=== PATIENT | male | born 1965 | race African-American/Black ===

== ENCOUNTER 2016-03-15 12:59 | Emergency (ER) | payer OTHER ==
[~2016-03-15] VITALS: Ht 170.2 cm; Wt 94.3 kg
[~2016-03-15 12:59] MED LIST: DILAUDID2 MG PO; FLEXERIL10 MG PO; KETOROLAC TROME10 M1 PO; LIORESAL 10MG T10 MG PO; MOTRIN 600 MG600 MG PO; OXYCODONE5 M1 PO; PERCOCET 325 MG1 TA2 PO; TRAMADOL50 MG PO; TRIAMCINOL0.1 %/453 TOP; ULTRAM(MONOGRAP50 MG PO
[2016-03-15 13:17] VITALS: BP 187/102
--- NOTE | 2016-03-15 13:30 | ED GENERAL ADULT ---
History of Present Illness General Chief Complaint: General Adult Stated Complaint: NECK PAIN/BACK PAIN WITH WITHDRAWLS FROM PAIN MEDS Source: patient, old records Exam Limitations: no limitations Vital Signs & Intake/Output Vital Signs & Intake/Output Vital Signs Date Time Temp Pulse Resp B/P Pulse O2 O2 Flow FiO2 Ox Delivery Rate 03/15 1317 98.2 74 16 187/102 98 Room Air Allergies Coded Allergies: NO KNOWN ALLERGIES (01/06/16) Reconcile Medications Ketorolac Tromethamine 10 MG TABLET 1 TAB PO TID PRN pain Oxycodone HCl 5 MG CAPSULE 1 CAP PO BID PRN PAIN Triage Note: REQUEST REFILL OF PAIN MEDS, OXYCONTIN AND OXYCODONE Triage Nurses Notes Reviewed? yes Onset: Abrupt Duration: week(s):, constant Timing: recent history Injury Environment: home Severity: moderate Severity Numbers: 7 No Modifying Factors: none Associated Symptoms: denies HPI: 50-year-old male with history of chronic neck and back pain presents emergency room for evaluation requesting refill of his pain medication. Patient is well- known to this ER has been seen numerous times in the past for similar symptoms and no recent trauma or fall he denies any arm or leg pain no numbness or tingling no chest pain no shortness of breath. There are no modifying factors or associated symptoms (REYNALDO FONSECA) Past History Travel History Traveled to [place] past 21 day No Medical History Any Pertinent Medical History? 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 No (REYNALDO FONSECA) Review of Systems Review of Systems Constitutional: Reports: see HPI. All Other Systems: Reviewed and Negative Comments Review of systems: See HPI, All other systems negative. Constitutional, no chills no fever, no malaise HEENT: no sore throat no congestion Cardiovascular: No chest pain , no palpitation , Skin, no rashes, no change in skin Respiratory: No dyspnea no cough no sputum no hemoptysis GI: No nausea no vomiting, no diarrhea, no bloating/constipation : No dysuria No hematuria, no frequency, no discharge Muscle skeletal: No joint pain, no joint swelling, chronic back pain, chronic neck pain, Neurologic: No numbness no confusion, no headache Psych: No stress Heme/endocrine: No bruising no bleeding Immunology: No lymphadenopathy (REYNALDO FONSECA) Physical Exam Physical Exam General Appearance: well developed/nourished, no apparent distress, alert, awake Comments: Well-developed well-nourished patient in no apparent distress. HEENT: Atraumatic, extraocular motion intact Neck: Supple, FROM, no midline or paracervical tenderness Back: FROM, Nontender no ecchymosis or signs of trauma Cardiovascular: Regular rate and rhythms no murmurs Respiratory: No respiratory distress. Patient speaking in full complete sentences. Extremities: full range of motion Neuro: Alert and oriented x3 Skin: Warm & dry;No appreciable rash on exposed skin Psych: Mood affect normal, normal memory normal judgment. Core Measures ACS in differential dx? No CVA/TIA Diagnosis: No Severe Sepsis Present: No Septic Shock Present: No (REYNALDO FONSECA) Progress Differential Diagnoses I considered the following diagnoses in my evaluation of the patient: Chronic pain, fracture sprain contusion Plan of Care: ctpmp reviewed, rx for 10 tabs of oxycodone provided. advised f/u with his pmd regarding future refills of this medication, d/w the pt the harms of narcotic abuse Initial ED EKG: none (REYNALDO FONSECA) Departure Departure Time of Disposition: 1332 Disposition: HOME OR SELF CARE Condition: Stable Clinical Impression Primary Impression: Chronic pain Referrals: PATIENT HAS NO PRIMARY CARE DR (PCP/Family) Additional Instructions: Oxycodone as directed this prescription was sent to the pharmacy Departure Forms: Customer Survey General Discharge Information Prescriptions: Current Visit Scripts Oxycodone HCl 1 CAP PO BID PRN PAIN #10 CAP (REYNALDO FONSECA) PA/DIE GRINDER Co-Sign Statement Statement: ED Attending supervision documentation- x I saw and evaluated the patient. I have also reviewed all the pertinent lab results and diagnostic results. I agree with the findings and the plan of care as documented in the PA's/DIE GRINDER's documentation. [] I have reviewed the ED Record and agree with the PA's/DIE GRINDER's documentation. [] Additions or exceptions (if any) to the PAs/DIE GRINDER's note and plan are summarized below: [] (JIN TURNER,JESUS) Critical Care Note Critical Care Note Critical Care Time: non-applicable (ELIZABETH MYLES,REYNALDO)
[2016-03-15] MEDS ORDERED: OXYCODONE HCL5 M2 PO (13:32)
== END 2016-03-15 13:38 ==
LOC: ERH 12:59
DX: G89.29 Other chronic pain (principal)

== ENCOUNTER 2016-09-18 14:43 | Emergency (ER) | payer OTHER ==
[~2016-09-18] VITALS: Ht 170.2 cm; Wt 94.3 kg
[~2016-09-18 14:43] MED LIST changes: +OXYCODONE HCL5 M2 PO
[2016-09-18 14:48] VITALS: BP 156/91
--- NOTE | 2016-09-18 15:36 | ED GENERAL ADULT ---
History of Present Illness General Chief Complaint: Neck/Upper Back Pain/Injury Stated Complaint: NECK AND BACK PAIN Source: patient Exam Limitations: no limitations Vital Signs & Intake/Output Vital Signs & Intake/Output Vital Signs Date Time Temp Pulse Resp B/P B/P Pulse O2 O2 Flow FiO2 Mean Ox Delivery Rate 09/18 1448 97.0 81 20 156/91 98 Room Air Room Air ED Intake and Output 09/19 0000 09/18 1200 Intake Total Output Total Balance Patient 208 lb Weight Weight Reported by Patient Measurement Method Allergies Coded Allergies: NO KNOWN ALLERGIES (01/06/16) Reconcile Medications Ketorolac Tromethamine 10 MG TABLET 1 TAB PO TID PRN pain Oxycodone HCl 5 MG CAPSULE 1 CAP PO BID PRN PAIN Triage Note: PT TO ED WITH C/O LOWER BACK, NECK PAIN X 3 DAYS, WORSE TODAY, NO FALL/INJURY TO THE AREA. Triage Nurses Notes Reviewed? yes HPI: 50 y/o male with h/o HTN, chronic neck/back pain, s/p cervical fusion presents requesting disability form completed and pain meds for his chronic back pain. Reports no acute worsening of his chronic pain. Had recent MRI that showed multiple disc hernations and vertebral narrowing. Has tried ibuprofen, lidoderm patches, and tramadol without relief. Stopped following up with his orthopedic surgeon because he would not prescribe him narcotic medications or fill out his form for disability payments. Denies fevers, IVDU, saddle anesthesia, urinary/ bowel incontinence/retention, or recent trauma. (DEANNA ROUSE,YAN) Past History Travel History Traveled to [place] past 21 day No Medical History Any Pertinent Medical History? 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 No (DEANNA ROUSE,YAN) Review of Systems Review of Systems Constitutional: Reports: no symptoms. EENTM: Reports: no symptoms. Respiratory: Reports: no symptoms. Cardiovascular: Reports: no symptoms. GI: Reports: no symptoms. Genitourinary: Reports: no symptoms. Musculoskeletal: Reports: back pain, neck pain. Skin: Reports: no symptoms. Neurological/Psychological: Reports: no symptoms. Hematologic/Endocrine: Reports: no symptoms. Immunologic/Allergic: Reports: no symptoms. (YAN HUERTA PA-C) Physical Exam Physical Exam General Appearance: well developed/nourished, no apparent distress, alert, awake , comfortable Head: atraumatic Eyes: Bilateral: normal appearance. Neck: normal inspection, supple, full range of motion, no midline tenderness Respiratory: normal breath sounds, lungs clear Cardiovascular: regular rate/rhythm, normal peripheral pulses Back: normal inspection, normal range of motion, no vertebral tenderness Extremities: normal inspection, BLE's NV intact, neg straight leg raise Neurologic/Psych: awake, alert, oriented x 3, normal gait, normal mood/affect Skin: intact, normal color, warm/dry Core Measures ACS in differential dx? No CVA/TIA Diagnosis: No Severe Sepsis Present: No Septic Shock Present: No (YAN HUERTA PA-C) Progress Differential Diagnoses I considered the following diagnoses in my evaluation of the patient: [disc herniation vs MSK pain vs nerve impingement vs cauda equina vs epidural abscess] Plan of Care: Pt offered naproxen for pain relief, and declining this medication. Explained to pt that the ER cannot fill out his disability form and that either his primary care provider or orthopedic surgeon must fill this form out. Initial ED EKG: none (YAN HUERTA PA-C) Departure Departure Disposition: HOME OR SELF CARE Condition: Stable Clinical Impression Primary Impression: Neck pain Secondary Impressions: Back pain Referrals: PATIENT HAS NO PRIMARY CARE DR (PCP/Family) Departure Forms: Customer Survey General Discharge Information (YAN HUERTA PA-C) PA/SORT LINE WORKER Co-Sign Statement Statement: ED Attending supervision documentation- [] I saw and evaluated the patient. I have also reviewed all the pertinent lab results and diagnostic results. I agree with the findings and the plan of care as documented in the PA's/SORT LINE WORKER's documentation. [X] I have reviewed the ED Record and agree with the PA's/SORT LINE WORKER's documentation. [] Additions or exceptions (if any) to the PAs/SORT LINE WORKER's note and plan are summarized below: [] (MOE TURNER,SOY) Critical Care Note Critical Care Note Critical Care Time: non-applicable (DEANNA ROUSE,YAN)
== END 2016-09-18 16:23 ==
LOC: ERH 14:43
DX: M54.2 Cervicalgia (principal); M54.5 Low back pain

== ENCOUNTER 2017-06-29 10:57 | Emergency (ER) | payer OTHER ==
[~2017-06-29 10:57] MED LIST changes: +BACLOFEN10 M1 PO; +IBUPROFEN600 M1 PO; +OXYCODONE HCL5 M1 PO
[2017-06-29 11:08] VITALS: BP 148/78
== END 2017-06-29 11:33 | disposition admitted as inpatient to this hospital (09) ==
LOC: ERH 10:57
DX: M54.2 Cervicalgia (principal); M54.89 Other dorsalgia